=== PATIENT | male | born 1970 | race Caucasian/White ===

== ENCOUNTER 2017-10-15 19:13 | Emergency (ER) | payer SELFPAY ==
[~2017-10-15] VITALS: Ht 185.4 cm; Wt 136.4 kg
[~2017-10-15 19:13] MED LIST: IBUP-14 PO
[2017-10-15] MEDS ORDERED: POVIDONE-IODINE 10% 15 ML SOLUTION UD TP ONE (20:15)
[2017-10-15] MEDS ORDERED: ACETAMINOPHEN 325 MG TABLET PO ONE (20:15)
[2017-10-15] MEDS ORDERED: LIDOCAINE HCL/PF 1% 5 ML VIAL INJ ONE (20:15)
[2017-10-15] MEDS ORDERED: BACITRACIN 0.9 GM PACKET OINTMENT TP ONE (20:15)
[2017-10-15 21:08] VITALS: BP 135/79
== END 2017-10-15 21:47 | disposition home or self-care (01) ==
LOC: EMS 19:14
DX: S61.412A Laceration without foreign body of left hand, initial encounter (principal); W45.8XXA Other foreign body or object entering through skin, initial encounter; Y93.89 Activity, other specified; Y92.89 Other specified places as the place of occurrence of the external cause; Y99.8 Other external cause status
CPT/HCPCS: 12002; 99283; J3490